=== PATIENT | female | born 1970 | race Caucasian/White ===

== ENCOUNTER 2020-02-12 10:10 | Inpatient (IN) | payer OTHER ==
[2020-02-12] MEDS ORDERED: Ketorolac 30 MG/ML SDV IVPUSH ONE (10:50)
[2020-02-12] MEDS ORDERED: Sodium Chloride 0.9% 1,000 ML IV ONE (10:50)
[2020-02-12] MEDS ORDERED: Piperacillin/Tazobactam/Dext 3.375 GM in Premix Bag 1 BAG IV ONE (10:50)
[2020-02-12] MEDS ORDERED: Sodium Chloride 0.9% 10 ML Syringe FLUSH PRN (10:50)
--- NOTE | 2020-02-12 11:06 | EDM.PDOC ---
ED HPI GENERAL MEDICAL PROBLEM - General Chief Complaint: Skin Complaint Stated Complaint: FEVER/CHILLS AND LOWER ABDOMINAL DISCOMFORT Time Seen by Provider: 02/12/20 10:35 Source of Information: Reports: Patient History Limitations: Reports: No Limitations - History of Present Illness INITIAL COMMENTS - FREE TEXT/NARRATIVE: 49 YO WF PRESENTS TO ER WITH COMPLAINTS OF 1 DAY FEVER/CHILLS AND LOWER ABDOMINAL DISCOMFORT. PT REPORTS SHE NOTICED EARLIER IN THE DAY A MILD HEADACHE AND FEELING FLUSHED. PT TOOK HER TEMP AT HOME AND NOTICED 102 TEMP. PT REPORTS TAKING SOME IBUPROFEN AT THAT TIME AND SYMPTOMS IMPROVED. PT REPORTS SHE BEGAN TO FEEL SOME LOWER ABDOMINAL DISCOMFORT WHICH SHE DESCRIBED A BURNING AND PULLING SENSATION. PT REPORTS SHE NOTICED SOME REDNESS TO HER LOWER ABDOMEN PROMPTING CONCERN AND ER EVALUATION. PT STATES HER PAIN FEELS MORE LIKE A BURN WITH MOSTLY SUPERFICIAL INVOLVEMENT. PT DENIES DYSURIA OR URINARY FREQUENCY. PT STATES SHE IS UNAWARE OF ANY RASH OR RECENT SKIN BREAKDOWN TO HER LOWER ABDOMEN. PT DENIES FEVER/CHILLS, NO NAUSEA/VOMITING, NO DIARRHEA/CONSTIPATION, NO COUGH/CONGESTION, NO SHORTNESS OF BREATH/CHEST PAIN OR SORE THROAT. 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 - Related Data Allergies Allergy/AdvReac Type Severity Reaction Status Date / Time macadamia nut oil Allergy Anaphylactic Verified 02/12/20 10:43 Shock No Known Drug Allergies Allergy Cannot Verified 04/09/16 17:47 Remember Home Meds: Home Meds Ibuprofen [Advil] 800 mg PO Q6H PRN 01/21/16 [History] Lisinopril 10 mg PO DAILY 01/21/16 [History] Citalopram [Citalopram HBr] 20 mg PO DAILY 02/12/20 [History] Ergocalciferol (Vitamin D2) [Vitamin D2] 50,000 unit PO WE 02/12/20 [History] Past Medical History Cardiovascular History: Reports: Hypertension, Other (See Below) Other Cardiovascular History: Stopped taking medications Gastrointestinal History: Reports: None, Cholelithiasis Genitourinary History: Reports: Renal Calculus 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 Denies: Bruising, Wound, Burn(s) Neurological: Reports: No Symptoms Psychiatric: Reports: No Symptoms Hematologic/Lymphatic: Reports: No Symptoms Immunologic: Reports: No Symptoms ED EXAM, SKIN/RASH Exam: See Below Exam Limited By: No Limitations General Appearance: Alert, WD/WN, No Apparent Distress Throat/Mouth: Normal Inspection, Normal Lips, Normal Teeth, Normal Gums, Normal Oropharynx, Normal Voice, No Airway Compromise Head: Atraumatic, Normocephalic Neck: Normal Inspection, Supple, Non-Tender, Full Range of Motion Respiratory/Chest: No Respiratory Distress, Lungs Clear, Normal Breath Sounds, No Accessory Muscle Use, Chest Non-Tender Cardiovascular: Normal Peripheral Pulses, Regular Rate, Rhythm, No Edema, No Gallop, No JVD, No Murmur, No Rub GI/Abdominal: Normal Bowel Sounds, Soft, No Organomegaly, No Distention, No Abnormal Bruit, No Mass, Tender (SUPERFICIAL TENDERNESS WITHOUT SIGNS/EVIDENCE OF ABCESS OR FLUID COLLECTION) Back Exam: Normal Inspection, Full Range of Motion, NT Extremities: Normal Inspection, Normal Range of Motion, Non-Tender, No Pedal Edema, Normal Capillary Refill Neurological: Alert, Oriented, CN II-XII Intact, Normal Cognition, Normal Gait, Normal Reflexes, No Motor/Sensory Deficits Psychiatric: Normal Affect, Normal Mood Skin: Erythema, Increased Warmth. No: Ecchymosis, Petechiae, Wound/Incision, Zoster-Like Rash Location, Skin: Abdomen Characteristics: Erythematous Associated features: Warmth, Tenderness. No: Swelling, Induration, Weeping Course - Orders/Labs/Meds Orders: Active Orders 24 hr Category Date Time Status Peripheral IV Care [RC] . DIRECTED Care 02/12/20 10:51 Active CULTURE BLOOD [] Stat Lab 02/12/20 10:51 Ordered CULTURE BLOOD [BC] Stat Lab 02/12/20 11:10 Received UA W/MICROSCOPIC [URIN] Stat Lab 02/12/20 10:50 Ordered Sodium Chloride 0.9% [Saline Flush] Med 02/12/20 10:50 Active 10 ml FLUSH Q8HR PRN Blood Culture x2 Reflex Set [OM.PC] Stat Oth 02/12/20 10:50 Ordered Peripheral IV Insertion Adult [OM.PC] Routine Oth 02/12/20 10:50 Ordered Medication Orders Sodium Chloride (Saline Flush) 10 ml FLUSH Q8HR PRN PRN Reason: keep vein open Labs: Laboratory Tests 02/12/20 02/12/20 Range/Units 11:10 11:10 WBC 9.27 (5.00-10.00) 10^3/uL RBC 5.12 (3.80-5.50) 10^6/uL Hgb 14.1 (12.0-16.0) g/dL Hct 43.3 (37.0-47.0) % MCV 84.6 (82.0-92.0) fL MCH 27.5 (27.0-31.0) pg MCHC 32.6 (32.0-36.0) g/dL RDW 12.9 (11.5-14.5) % Plt Count 184 (150-400) 10^3/uL MPV 11.4 H (7.4-10.4) fL Immature Gran % (Auto) 0.1 (0.0-5.0) % Neut % (Auto) 77.0 H (50.0-70.0) % Lymph % (Auto) 11.8 L (20.0-40.0) % Lane % (Auto) 8.2 H (2.0-8.0) % Eos % (Auto) 2.4 (1.0-3.0) % Baso % (Auto) 0.5 (0.0-1.0) % Neut # (Auto) 7.14 H (2.50-7.00) 10^3/uL Lymph # (Auto) 1.09 (1.00-4.00) 10^3/uL Lane # (Auto) 0.76 (0.10-0.80) 10^3/uL Eos # (Auto) 0.22 (0.10-0.30) 10^3/uL Baso # (Auto) 0.05 (0.00-0.10) 10^3/uL Immature Gran # (Auto) 0.01 (0.00-0.50) 10^3/uL Sodium 141 (136-145) mmol/L Potassium 3.7 (3.3-5.3) mmol/L Chloride 103 (98-115) mmol/L Carbon Dioxide 28.1 (21.0-32.0) mmol/L Anion Gap 13.6 (5-15) mmol/L BUN 8 (6-25) mg/dL Creatinine 0.72 (0.51-1.17) mg/dL Est Cr Clr Drug Dosing TNP Estimated GFR (MDRD) > 60 mL/min Glucose 105 H (75 - 99) mg/dL Calcium 8.5 L (8.7-10.3) mg/dL Total Bilirubin 0.7 (0.2-1.0) mg/dL AST 16 (15-37) U/L ALT 29 (12-78) U/L Alkaline Phosphatase 64 (46-116) IU/L Total Protein 7.0 (6.4-8.2) g/dL Albumin 3.39 (3.00-4.80) g/dL Lipase 61 L (73-393) U/L Meds: Medications Generic Name Dose Route Start Last Admin Trade Name Freq PRN Reason Stop Dose Admin Sodium Chloride 10 ml 02/12/20 10:50 Saline Flush FLUSH Q8HR PRN keep vein open Discontinued Medications Generic Name Dose Route Start Last Admin Trade Name Freq PRN Reason Stop Dose Admin Piperacillin/Tazobactam/ 50 mls @ 100 mls/hr 02/12/20 10:50 Dextrose 3.375 gm/ Premix IV 02/12/20 11:19 ONETIME ONE Sodium Chloride 1,000 mls @ 999 mls/hr 02/12/20 10:50 Normal Saline IV 02/12/20 11:50 .BOLUS ONE Ketorolac Tromethamine 30 mg 02/12/20 10:50 Toradol IVPUSH 02/12/20 10:51 ONETIME ONE Departure - Departure Time of Disposition: 12:13 Disposition: Admitted As Inpatient 68 Condition: Fair Clinical Impression: Abdominal wall cellulitis - Discharge Information Referrals: Jyoti Nunn PA-C [Primary Care Provider] - Forms: ED Department Discharge - My Orders Last 24 Hours: My Active Orders 02/12/20 10:50 UA W/MICROSCOPIC [URIN] Stat Sodium Chloride 0.9% [Saline Flush] 10 ml FLUSH Q8HR PRN Blood Culture x2 Reflex Set [OM.PC] Stat Peripheral IV Insertion Adult [OM.PC] Routine 02/12/20 10:51 Peripheral IV Care [RC] . DIRECTED CULTURE BLOOD [BC] Stat 02/12/20 11:10 CULTURE BLOOD [BC] Stat - Assessment/Plan Admission H&P: Please use this note as an admission H&P Last 24 Hours: My Active Orders 02/12/20 10:50 UA W/MICROSCOPIC [URIN] Stat Sodium Chloride 0.9% [Saline Flush] 10 ml FLUSH Q8HR PRN Blood Culture x2 Reflex Set [OM.PC] Stat Peripheral IV Insertion Adult [OM.PC] Routine 02/12/20 10:51 Peripheral IV Care [RC] . DIRECTED CULTURE BLOOD [BC] Stat 02/12/20 11:10 CULTURE BLOOD [BC] Stat Assessment:: 1. ABDOMINAL WALL CELLULITIS 2. FEVER Plan: 1. ADMIT INPATIENT- DR FRANCESCA HOLCOMB 2. VANCO/ZOSYN 3. REPEAT LABS IN AM 4. AWAIT BLOOD CULTURE RESULTS 5. SUPPORTIVE CARE
[2020-02-12 11:39] LABS: ANION GAP 13.6 mmol/L (5-15); CHLORIDE,CL 103 mmol/L (98-115); SODIUM,NA 141 mmol/L (136-145)
[2020-02-12] MEDS ORDERED: Piperacillin/Tazobactam/Dext 3.375 GM in Premix Bag 1 BAG IV SCH (12:30)
[2020-02-12] MEDS: Acetaminophen 500 MG Tab PO PRN (17:29)
[2020-02-12] MEDS: Sodium Chloride 0.9% 250 ML IV SCH (20:54)
[2020-02-12] MEDS: Piperacillin/Tazobactam/Dext 3.375 GM in Premix Bag 1 BAG IV SCH (20:55)
[2020-02-12] MEDS: Ibuprofen 200 MG Tab PO PRN (22:04)
[2020-02-13] MEDS: Piperacillin/Tazobactam/Dext 3.375 GM in Premix Bag 1 BAG IV SCH ×4 (03:07→20:53)
[2020-02-13] MEDS: Ibuprofen 200 MG Tab PO PRN ×3 (06:15→21:10)
[2020-02-13] MEDS: Acetaminophen 500 MG Tab PO PRN (07:41)
[2020-02-13 07:56] LABS: ANION GAP 9.9 mmol/L (5-15); CHLORIDE,CL 106 mmol/L (98-115); SODIUM,NA 142 mmol/L (136-145)
[2020-02-13] MEDS: Lisinopril 10 MG Tab PO SCH (08:52)
[2020-02-13] MEDS: Citalopram 20 MG Tab PO SCH (08:54)
[2020-02-13] MEDS: Sodium Chloride 0.9% 10 ML Syringe FLUSH PRN (14:53)
[2020-02-14] MEDS: Piperacillin/Tazobactam/Dext 3.375 GM in Premix Bag 1 BAG IV SCH ×4 (03:08→20:32)
[2020-02-14] MEDS: Ibuprofen 200 MG Tab PO PRN ×2 (03:09→19:13)
[2020-02-14] MEDS: Lisinopril 10 MG Tab PO SCH (08:28)
[2020-02-14] MEDS: Citalopram 20 MG Tab PO SCH (08:28)
--- NOTE | 2020-02-14 10:50 | PN ---
02/13/2020 PATIENT NAME: MADHURI LOGAN HISTORY OF PRESENT ILLNESS: This is a 49-year-old female who was admitted to the emergency room yesterday with abdominal wall cellulitis and fever. She was given a dose of vancomycin in the emergency room and treated with Zosyn. The patient states she feels a little better, however, it is still quite tender on the abdomen. She has been afebrile. She is receiving IV Zosyn and tolerating that well. LABORATORY DATA: Lab results from today shows a normal white blood cell count. She has a normal hemoglobin and hematocrit of 13 and 39.3. Chemistry panel was completely normal with the exception of a low calcium of 8.2. BUN and creatinine are normal at 8 and 0.67. UA in the ER was negative. Her lactate was normal at 0.6. PHYSICAL EXAMINATION: VITAL SIGNS: Temp is 98.7, pulse 63, respirations 18, blood pressure 120/70, O2 saturation is 97% on room air. SKIN: Warm and dry to touch. CARDIAC: Reveals S1, S2 to be normal. Rate and rhythm are regular. No murmur, click, or gallop is auscultated. LUNGS: Clear. ABDOMEN: Tender in the lower aspect. There is a cellulitis present and it is reducing in size. It is well marked with a permanent marker. Her abdomen is quite obese. There may be a portal of entry with two small sores on the left side of her abdomen. IMPRESSION: Abdominal wall cellulitis. She will continue Zosyn. She will stay in the hospital for at least one more day, possibly two. Dr. Delfina Tobin will see her tomorrow on acute care rounds. /[id number]/MODL
[2020-02-14] MEDS: Sodium Chloride 0.9% 10 ML Syringe FLUSH PRN ×2 (15:30→16:20)
[2020-02-14] MEDS: Sodium Chloride 0.9% 250 ML IV SCH (15:31)
--- NOTE | 2020-02-14 16:03 | PCM.PN ---
- General Info Date of Service: 02/14/20 Admission Dx/Problem (Free Text): Abdominal wall cellulitis. - Review of Systems Systems Review Comment:: Petra is seen today on inpatient rounds. She was admitted through the ER on 02/11 with abdominal wall cellulitis of only a day's duration with fevers and pain at the site. She was started on vancomycin and zosyn. Blood cultures have been negative to date. No obvious abscess. Labs have been normal. She still has tenderness this morning but it is improving. No fevers in over 24 hours. - Patient Data Vitals - Most Recent: Last Vital Signs Temp 98.1 F 02/14/20 15:00 Pulse 68 02/14/20 15:00 Resp 18 02/14/20 15:00 BP 107/55 L 02/14/20 15:00 Pulse Ox 98 02/14/20 15:00 Weight - Most Recent: 356 lb 14.4 oz I&O - Last 24 Hours: Intake & Output 02/14/20 02/14/20 02/14/20 06:59 14:59 22:59 Intake Total 280 1175 Balance 280 1175 John Results Last 24 Hours: Microbiology 02/12/20 12:35 Aerobic Blood Culture - Preliminary Blood - Arm, Left NO GROWTH AFTER 2 DAYS Anaerobic Blood Culture - Preliminary NO GROWTH AFTER 2 DAYS 02/12/20 11:10 Aerobic Blood Culture - Preliminary Blood - Arm, Right NO GROWTH AFTER 2 DAYS Anaerobic Blood Culture - Preliminary NO GROWTH AFTER 2 DAYS Med Orders - Current: Current Medications Acetaminophen (Tylenol Extra Strength) 1,000 mg PO Q6H PRN PRN Reason: Headache Last Admin: 02/13/20 07:41 Dose: 1,000 mg Documented by: Citalopram Hydrobromide (Celexa) 20 mg PO DAILY [facility] Last Admin: 02/14/20 08:28 Dose: 20 mg Documented by: Piperacillin/Tazobactam/ (Dextrose 3.375 gm/ Premix) 50 mls @ 100 mls/hr IV Q6H [facility] Last Admin: 02/14/20 15:31 Dose: 100 mls/hr Documented by: Sodium Chloride (Normal Saline) 250 mls @ 100 mls/hr IV ASDIRECTED [facility] Last Admin: 02/14/20 15:31 Dose: 100 mls/hr Documented by: Ibuprofen (Motrin) 800 mg PO Q6H PRN PRN Reason: Pain Last Admin: 02/14/20 03:09 Dose: 800 mg Documented by: Lisinopril (Prinivil) 10 mg PO DAILY [facility] Last Admin: 02/14/20 08:28 Dose: 10 mg Documented by: Non-Formulary Medication (Ergocalciferol (Vitamin D2) [Vitamin D2]) 50,000 unit PO WE [facility] Sodium Chloride (Saline Flush) 10 ml FLUSH Q8HR PRN PRN Reason: keep vein open Last Admin: 02/14/20 15:30 Dose: 10 ml Documented by: Discontinued Medications Piperacillin/Tazobactam/ (Dextrose 3.375 gm/ Premix) 50 mls @ 100 mls/hr IV ONETIME ONE Stop: 02/12/20 11:19 Last Admin: 02/12/20 17:08 Dose: Not Given Documented by: Sodium Chloride (Normal Saline) 1,000 mls @ 999 mls/hr IV .BOLUS ONE Stop: 02/12/20 11:50 Last Admin: 02/12/20 12:03 Dose: 999 mls/hr Documented by: Piperacillin/Tazobactam/ (Dextrose 3.375 gm/ Premix) 50 mls @ 100 mls/hr IV Q6H [facility] Last Admin: 02/12/20 15:22 Dose: 100 mls/hr Documented by: Vancomycin HCl 1 gm/ Sodium (Chloride) 250 mls @ 167 mls/hr IV ONETIME ONE Stop: 02/12/20 13:45 Last Admin: 02/12/20 12:40 Dose: 167 mls/hr Documented by: Ketorolac Tromethamine (Toradol) 30 mg IVPUSH ONETIME ONE Stop: 02/12/20 10:51 Last Admin: 02/12/20 12:04 Dose: 30 mg Documented by: Sodium Chloride (Saline Flush) 10 ml FLUSH Q8HR PRN PRN Reason: keep vein open - Exam General: Alert, Oriented, Cooperative, No Acute Distress Lungs: Clear to Auscultation, Normal Respiratory Effort Cardiovascular: Regular Rate, Regular Rhythm, No Murmurs GI/Abdominal Exam: Tender (Tender on the right abdomen where the cellulitis is located.) Skin: Other (Area of erythema of the abdomen is regressing from marked line although still erythematous and warm to the touch, more on the right than the left.) Sepsis Event Note - Evaluation Sepsis Screening Result: No Definite Risk - Focused Exam Vital Signs: Vital Signs Temp Pulse Resp BP BP Pulse Ox Pulse Ox 02/14/20 15:00 98.1 F 68 18 107/55 L 98 02/14/20 08:28 115/76 02/14/20 07:55 97 02/14/20 06:13 97.3 F 69 18 142/72 H 97 - Problem List Review Problem List Initiated/Reviewed/Updated: Yes - My Orders Last 24 Hours: My Active Orders 02/16/20 19:37 Ergocalciferol (Vitamin D2) [Vitamin D2] 50,000 unit PO WE - Assessment Assessment:: Abdominal wall cellulitis Depression HTN - Plan Plan:: Abdominal wall cellulitis - Continue vancomycin, pharm to dose - Continue zosyn - Blood cultures are negative to date Depression - Continue citalopram HTN - Continue lisinopril CODE STATUS: Full Code Anticipate discharge to home on oral antibiotics in 1-2 days.
[2020-02-15] MEDS: Piperacillin/Tazobactam/Dext 3.375 GM in Premix Bag 1 BAG IV SCH ×3 (02:56→14:34)
[2020-02-15 08:07] LABS: ANION GAP 10.4 mmol/L (5-15); CHLORIDE,CL 106 mmol/L (98-115); SODIUM,NA 142 mmol/L (136-145)
[2020-02-15] MEDS: Citalopram 20 MG Tab PO SCH (08:33)
[2020-02-15] MEDS: Lisinopril 10 MG Tab PO SCH (08:33)
[2020-02-15 14:54] VITALS: BP 143/75; PULSE 65
[2020-02-16] MEDS ORDERED: ERGOCALCIFEROL 50000 UNIT PO SCH (19:37)
--- NOTE | 2020-02-17 12:24 | DISCH ---
HOSPITAL COURSE: This is a 49-year-old female who was being discharged from the hospital. She was admitted through the ER on 02/12/2020 with abdominal wall cellulitis. She received a dose of vancomycin in the emergency room and was continued on Zosyn inpatient. Blood cultures were negative. No obvious abscess. Lab work has been normal. Her abdomen is still somewhat tender, however, it has improved quite a bit. She has not had a fever in 48 hours. She is ready to go home and is confident that she can return to her activities of daily living. Lactate has been negative as well. She was tested for COVID and was negative for the same. PHYSICAL EXAMINATION: VITAL SIGNS: She is afebrile, pulse 63, respirations 18, blood pressure 120/70, O2 saturation 97% on room air. SKIN: Warm and dry to touch. CARDIAC: Reveals S1, S2 to be normal. Rate and rhythm are regular. No murmur, click, or gallop is auscultated. LUNGS: Clear. GI: Abdominal wall, right, mid to lower abdomen is somewhat tender in some areas where it was tender in the entire marked area before. This has improved. IMPRESSION: 1. Abdominal wall cellulitis. She has done well with IV antibiotics and is improving. She has been afebrile for 48 hours. She will be discharged to home. She will follow up with Dr. Mathis or myself on Tuesday, February 18, 2020. She will be discharged with cephalexin 500 mg q.i.d. for 14 days. Should she have any problems after discharge, she will notify the hospital or the clinic. 2. She does have a history of depression and is taking citalopram. This will be continued. 3. Hypertension, stable, on lisinopril. She will continue that at home as well. /[id number]/MODL
== END 2020-02-15 16:00 | disposition home or self-care (01) | DRG 603 ==
LOC: KA.ED 10:10 → KA.MS 12:13
PROVIDERS: ADMIT Physician Assistant Medical; ATTEND Internal Medicine
DX: L03.311 Cellulitis of abdominal wall (principal); F32.9 Major depressive disorder, single episode, unspecified; I10 Essential (primary) hypertension; Z20.828 Contact with and (suspected) exposure to other viral communicable diseases; Z87.442 Personal history of urinary calculi; Z91.018 Allergy to other foods; Z79.899 Other long term (current) drug therapy
CPT/HCPCS: 36415; 80048; 80053; 81001; 83605; 83690; 85025; 87040; 87077; 96374; 99223; 99284-25; A9270-GY; J1885; J2543; J3370; J7030; J7050; U0002

== ENCOUNTER 2021-09-18 21:10 | Emergency (ER) | payer OTHER ==
[2021-09-18] MEDS ORDERED: Sodium Chloride 0.9% 10 ML Syringe FLUSH PRN (21:25)
[2021-09-18] MEDS: Sodium Chloride 0.9% 1,000 ML IV ONE (21:34)
[2021-09-18] MEDS: Ketorolac 30 MG/ML SDV IVPUSH ONE (21:38)
[2021-09-18] MEDS: Sodium Chloride 0.9% 1,000 ML ONE (21:43)
[2021-09-18 21:49] LABS: ANION GAP 14.4 mmol/L (5-15); CHLORIDE,CL 101 mmol/L (98-107); SODIUM,NA 138 mmol/L (136-145)
[2021-09-18] MEDS: Iopamidol 755 Mg/ML 100 ML Bottle IV ONE (22:15)
[2021-09-18] MEDS: Sodium Chloride 0.9% 50 ML IV SCH (22:26)
[2021-09-18 22:51] VITALS: PULSE 70
[2021-09-18 23:20] VITALS: BP 147/84
== END 2021-09-18 23:16 | disposition home or self-care (01) ==
LOC: KA.ED 21:10
DX: N83.201 Unspecified ovarian cyst, right side (principal); I10 Essential (primary) hypertension; E66.9 Obesity, unspecified; Z68.43 Body mass index [BMI] 50.0-59.9, adult; Z88.8 Allergy status to other drugs, medicaments and biological substances; Z79.82 Long term (current) use of aspirin
CPT/HCPCS: 36415; 74177; 80053; 81003; 83690; 84703; 85025; 96374; 99284; 99284-25; J1885; J7030; Q9967

== ENCOUNTER 2023-06-22 13:16 | Emergency (ER) | payer OTHER ==
[2023-06-22] MEDS ORDERED: Ketorolac 30 MG/ML SDV IVPUSH ONE (13:23)
[2023-06-22] MEDS ORDERED: Ondansetron 4 MG/2 ML SDV IVPUSH ONE (13:24)
[2023-06-22] MEDS ORDERED: Sodium Chloride 0.9% 1,000 ML IV ONE (13:25)
[2023-06-22 13:29] LABS: BASOPHILS ABSOLUTE AUTO 0.04 10^3/uL (0.00-0.10); BASOPHILS PERCENT AUTO 0.6 % (0.0-1.0); EOSINOPHILS ABSOLUTE AUTO 0.31 10^3/uL (0.10-0.30); EOSINOPHILS PERCENT AUTO 4.5 % (1.0-3.0); HEMATOCRIT 42.1 % (37.0-47.0); IMMATURE GRAN ABSOLUTE AUTO 0.02 10^3/uL (0.00-0.50); IMMATURE GRAN PERCENT AUTO 0.3 % (0.0-5.0); LYMPHOCYTES ABSOLUTE AUTO 1.41 10^3/uL (1.00-4.00); LYMPHOCYTES PERCENT AUTO 20.7 % (20.0-40.0); MEAN CORPUSCULAR HEMOGLOBIN 28.2 pg (27.0-31.0); MEAN CORPUSCULAR HGB CONC 33.3 g/dL (32.0-36.0); MEAN CORPUSCULAR VOLUME 84.7 fL (82.0-92.0); MEAN PLATELET VOLUME 11.4 fL (7.4-10.4); MONOCYTES ABSOLUTE AUTO 0.56 10^3/uL (0.10-0.80); MONOCYTES PERCENT AUTO 8.2 % (2.0-8.0); NEUTROPHILS ABSOLUTE AUTO 4.48 10^3/uL (2.50-7.00); NEUTROPHILS PERCENT AUTO 65.7 % (50.0-70.0); PLATELET COUNT,PLT 212 10^3/uL (150-400); RED BLOOD CELL COUNT 4.97 10^6/uL (3.80-5.50); RED CELL DISTRIBUTION WIDTH 12.5 % (11.5-14.5); WHITE BLOOD CELL COUNT,WBC 6.82 10^3/uL (5.00-10.00)
[2023-06-22 13:44] LABS: ALANINE AMINOTRANSFERASE,ALT 33 U/L (14-63); ALKALINE PHOSPHATASE 55 U/L (46-116); ANION GAP 14.6 mmol/L (5-15); ASPARTATE AMNIOTRANSFERASE,AST 25 U/L (15-37); BILIRUBIN TOTAL 0.6 mg/dL (0.2-1.0); BLOOD UREA NITROGEN,BUN 17 mg/dL (7-18); CALCIUM 8.7 mg/dL (8.7-10.3); CARBON DIOXIDE,CO2 25.2 mmol/L (21.0-32.0); CHLORIDE,CL 101 mmol/L (98-107); CREATININE 0.71 mg/dL (0.51-1.17); ESTIMATED GFR 104 mL/min (>=60); GLUCOSE RANDOM 111 mg/dL (70-140); POTASSIUM,K 3.8 mmol/L (3.5-5.1); PROTEIN TOTAL,TP 7.1 g/dL (6.4-8.2); SODIUM,NA 137 mmol/L (136-145)
[2023-06-22 14:08] LABS: APPEARANCE,URINE CLOUDY (CLEAR); BILIRUBIN,URINE SMALL (NEGATIVE); COLOR,URINE YELLOW (YELLOW); GLUCOSE,URINE NEGATIVE (NEGATIVE); KETONES,URINE NEGATIVE (NEGATIVE); LEUKOCYTE ESTERASE,URINE NEGATIVE (NEGATIVE); NITRITE,URINE NEGATIVE (NEGATIVE); OCCULT BLOOD,URINE LARGE (NEGATIVE); PH,URINE 5.5 (5.0-9.0); PROTEIN,URINE 100 mg/dL (NEGATIVE); UROBILINOGEN,URINE 0.2 E.U./dL (0.2-1.0)
[2023-06-22 14:09] LABS: BACTERIA,URINE FEW /HPF (NONE TO FEW); EPITHELIAL CELLS,URINE MODERATE /LPF; MUCUS,URINE FEW /LPF (NEGATIVE); RBC,URINE >100 /HPF (0-5); WBC,URINE 0-5 /HPF (0-5)
[2023-06-22] MEDS ORDERED: Tamsulosin 0.4 MG Cap.ER PO ONE ×2 (14:20→14:46)
[2023-06-22] MEDS ORDERED: Ondansetron 4 MG Tab.DIS PO ONE (15:10)
[2023-06-22] MEDS ORDERED: Acetaminophen/HYDROcodone 325-10 MG Tab PO ONE (15:11)
[2023-06-22 16:07] VITALS: BP 154/80; PULSE 62
== END 2023-06-22 15:34 | disposition home or self-care (01) ==
LOC: KA.ED 13:16
DX: N13.2 Hydronephrosis with renal and ureteral calculous obstruction (principal); I10 Essential (primary) hypertension; Z91.018 Allergy to other foods; E66.9 Obesity, unspecified; Z68.43 Body mass index [BMI] 50.0-59.9, adult; Z79.899 Other long term (current) drug therapy
CPT/HCPCS: 74176; 80053; 81001; 85025; 96374; 96375; 99284; 99284-25; A9270-GY; J1885; J2405; J7030

== ENCOUNTER 2023-12-21 19:59 | Emergency (ER) | payer OTHER ==
[2023-12-21] MEDS: Ondansetron 4 MG/2 ML SDV ONE (20:28)
[2023-12-21] MEDS: LORazepam 2 MG/ML SDV IVPUSH ONE (20:29)
[2023-12-21] MEDS: Alum Hydrox/Mag Hydrox/Simeth 30 ML, Lidocaine 2% 15 ML PO ONE (20:33)
[2023-12-21] MEDS: LORazepam 2 MG/ML SDV ONE (20:33)
[2023-12-21] MEDS: Ondansetron 4 MG/2 ML SDV IVPUSH ONE (20:33)
[2023-12-21] MEDS: Glucagon,Human Recombinant 1 MG Vial IVPUSH ONE (20:43)
[2023-12-21 20:50] VITALS: BP 151/96; PULSE 90
== END 2023-12-21 21:25 | disposition home or self-care (01) ==
LOC: KA.ED 19:59
DX: K22.89 Other specified disease of esophagus (principal); I10 Essential (primary) hypertension; E66.9 Obesity, unspecified; Z90.49 Acquired absence of other specified parts of digestive tract; Z79.899 Other long term (current) drug therapy; Z91.018 Allergy to other foods; Z68.43 Body mass index [BMI] 50.0-59.9, adult
CPT/HCPCS: 96374; 96375; 99283-25; 99284; A9270-GY; J1611; J2060; J2405

== ENCOUNTER 2024-01-20 08:08 | Day surgery (SDC) | payer OTHER ==
[2024-01-20] MEDS ORDERED: Propofol 200 MG/20 ML SDV IV ONE (08:09)
[2024-01-20] MEDS: Sodium Chloride 0.9% 10 ML Syringe FLUSH PRN (08:30)
[2024-01-20] MEDS: Lactated Ringers 1,000 ML IV SCH (08:37)
[2024-01-20] MEDS ORDERED: Glycopyrrolate 0.2 MG/ML SDV ONE (08:52)
[2024-01-20] MEDS ORDERED: Midazolam 1 MG/ML 2 ML SDV ONE (08:52)
[2024-01-20] MEDS ORDERED: Propofol 200 MG/20 ML SDV ONE ×3 (08:52→09:42)
[2024-01-20] MEDS ORDERED: Lidocaine 2% 100 MG/5 ML Syringe ONE (08:53)
[2024-01-20] MEDS ORDERED: Lactated Ringers 1,000 ML ONE (09:32)
[2024-01-20 12:21] VITALS: BP 130/76; PULSE 61
== END 2024-01-20 11:46 | disposition home or self-care (01) ==
LOC: KA.SDS 08:08
PROVIDERS: ATTEND Surgery
DX: Z12.11 Encounter for screening for malignant neoplasm of colon (principal); R13.10 Dysphagia, unspecified; K29.50 Unspecified chronic gastritis without bleeding; K57.30 Diverticulosis of large intestine without perforation or abscess without bleeding; N20.0 Calculus of kidney; Z80.0 Family history of malignant neoplasm of digestive organs
CPT/HCPCS: 00813; 81025; J2250; J2704; J3490; J7120

== ENCOUNTER 2024-09-02 12:23 | Emergency (ER) | payer BC, OTHER ==
[2024-09-02] MEDS ORDERED: Sodium Chloride 0.9% 10 ML Syringe FLUSH PRN (12:34)
[2024-09-02 12:38] VITALS: BP 139/80; PULSE 70
[2024-09-02] MEDS: Alum Hydrox/Mag Hydrox/Simeth 30 ML, Lidocaine 2% 15 ML PO ONE (12:43)
[2024-09-02 12:47] LABS: BASOPHILS ABSOLUTE AUTO 0.03 10^3/uL (0.00-0.10); BASOPHILS PERCENT AUTO 0.4 % (0.0-1.0); EOSINOPHILS ABSOLUTE AUTO 0.26 10^3/uL (0.10-0.30); EOSINOPHILS PERCENT AUTO 3.7 % (1.0-3.0); HEMATOCRIT 43.8 % (37.0-47.0); IMMATURE GRAN ABSOLUTE AUTO 0.01 10^3/uL (0.00-0.04); IMMATURE GRAN PERCENT AUTO 0.1 % (0.0-0.4); LYMPHOCYTES ABSOLUTE AUTO 1.39 10^3/uL (1.00-4.00); MEAN CORPUSCULAR HEMOGLOBIN 27.9 pg (27.0-31.0); MEAN CORPUSCULAR HGB CONC 34.2 g/dL (32.0-36.0); MEAN CORPUSCULAR VOLUME 81.4 fL (82.0-92.0); MEAN PLATELET VOLUME 11.6 fL (7.4-10.4); MONOCYTES ABSOLUTE AUTO 0.69 10^3/uL (0.10-0.80); MONOCYTES PERCENT AUTO 9.9 % (2.0-8.0); NEUTROPHILS ABSOLUTE AUTO 4.57 10^3/uL (2.50-7.00); NEUTROPHILS PERCENT AUTO 65.9 % (50.0-70.0); PLATELET COUNT,PLT 212 10^3/uL (150-400); RED BLOOD CELL COUNT 5.38 10^6/uL (3.80-5.50); RED CELL DISTRIBUTION WIDTH 12.5 % (11.5-14.5); WHITE BLOOD CELL COUNT,WBC 6.95 10^3/uL (5.00-10.00)
[2024-09-02] MEDS: Pantoprazole 40 MG Vial IVPUSH ONE (12:54)
[2024-09-02 13:07] LABS: B-TYPE NATRIURETIC PEPTIDE,BNP 8 pg/mL (0-100)
[2024-09-02 13:08] LABS: ALANINE AMINOTRANSFERASE,ALT 42 U/L (14-63); ALBUMIN 3.77 g/dL (3.40-5.00); ALKALINE PHOSPHATASE 67 U/L (46-116); ASPARTATE AMNIOTRANSFERASE,AST 23 U/L (15-37); BILIRUBIN TOTAL 0.6 mg/dL (0.2-1.0); BLOOD UREA NITROGEN,BUN 14 mg/dL (7-18); C-REACTIVE PROTEIN < 0.50 mg/dL (0.00-0.50); CALCIUM 9.8 mg/dL (8.7-10.3); CARBON DIOXIDE,CO2 27.8 mmol/L (21.0-32.0); CHLORIDE,CL 99 mmol/L (98-107); CREATININE 0.67 mg/dL (0.51-1.17); ESTIMATED GFR 106 mL/min (>=60); GLUCOSE RANDOM 101 mg/dL (70-140); LIPASE 24 U/L (16-77); POTASSIUM,K 3.8 mmol/L (3.5-5.1); PROTEIN TOTAL,TP 7.3 g/dL (6.4-8.2); SODIUM,NA 136 mmol/L (136-145)
[2024-09-02] MEDS: Sodium Chloride 0.9% 1,000 ML IV ONE (13:31)
[2024-09-02] MEDS: Famotidine 20 MG/2 ML SDV IVPUSH ONE (13:31)
[2024-09-02] MEDS: Iopamidol 755 Mg/ML 100 ML Bottle IV ONE (14:29)
[2024-09-02] MEDS: Sodium Chloride 0.9% 100 ML IV SCH (14:29)
== END 2024-09-02 16:00 | disposition home or self-care (01) ==
LOC: KA.ED 12:23
DX: K29.51 Unspecified chronic gastritis with bleeding (principal); K22.89 Other specified disease of esophagus; F41.9 Anxiety disorder, unspecified; F32.A Depression, unspecified; R79.89 Other specified abnormal findings of blood chemistry; I10 Essential (primary) hypertension; Z91.09 Other allergy status, other than to drugs and biological substances; Z88.8 Allergy status to other drugs, medicaments and biological substances; Z79.899 Other long term (current) drug therapy; Z90.49 Acquired absence of other specified parts of digestive tract; Z87.19 Personal history of other diseases of the digestive system
CPT/HCPCS: 36415; 71045; 71275; 80053; 83690; 83880; 84484; 85025; 85379; 86140; 93005; 93010; 96374; 96375; 99284; 99285-25; A9270-GY; J2470; J7030; Q9967

== ENCOUNTER 2025-02-22 18:47 | Emergency (ER) | payer BC, OTHER ==
[2025-02-22] MEDS: Bacitracin/Neomycin/Polymyxin B Oint 0.9 GM U/D Packet TOP ONE (19:16)
[2025-02-22 22:18] VITALS: BP 169/92; PULSE 75
== END 2025-02-22 19:27 | disposition home or self-care (01) ==
LOC: KA.ED 18:47
DX: L03.311 Cellulitis of abdominal wall (principal); I10 Essential (primary) hypertension; E66.9 Obesity, unspecified; Z79.899 Other long term (current) drug therapy; Z79.1 Long term (current) use of non-steroidal anti-inflammatories (NSAID); Z88.8 Allergy status to other drugs, medicaments and biological substances; Z91.09 Other allergy status, other than to drugs and biological substances; Z90.49 Acquired absence of other specified parts of digestive tract
CPT/HCPCS: 87070; 87205; 99284; A9270

== ENCOUNTER 2025-05-11 17:43 | Emergency (ER) | payer BC, OTHER ==
[2025-05-11] MEDS ORDERED: Sodium Chloride 0.9% 10 ML Syringe FLUSH PRN (17:53)
[2025-05-11 18:10] LABS: BASOPHILS ABSOLUTE AUTO 0.07 10^3/uL (0.00-0.10); BASOPHILS PERCENT AUTO 1.1 % (0.0-1.0); EOSINOPHILS ABSOLUTE AUTO 0.38 10^3/uL (0.10-0.30); EOSINOPHILS PERCENT AUTO 5.8 % (1.0-3.0); IMMATURE GRAN ABSOLUTE AUTO 0.01 10^3/uL (0.00-0.04); IMMATURE GRAN PERCENT AUTO 0.2 % (0.0-0.4); LYMPHOCYTES ABSOLUTE AUTO 1.84 10^3/uL (1.00-4.00); LYMPHOCYTES PERCENT AUTO 28.0 % (20.0-40.0); MEAN PLATELET VOLUME 11.7 fL (7.4-10.4); MONOCYTES ABSOLUTE AUTO 0.59 10^3/uL (0.10-0.80); MONOCYTES PERCENT AUTO 9.0 % (2.0-8.0); NEUTROPHILS ABSOLUTE AUTO 3.69 10^3/uL (2.50-7.00); NEUTROPHILS PERCENT AUTO 55.9 % (50.0-70.0); PLATELET COUNT,PLT 194 10^3/uL (150-400); RED BLOOD CELL COUNT 5.37 10^6/uL (3.80-5.50); RED CELL DISTRIBUTION WIDTH 12.6 % (11.5-14.5); WHITE BLOOD CELL COUNT,WBC 6.58 10^3/uL (5.00-10.00)
[2025-05-11 18:19] VITALS: BP 155/93; PULSE 78
[2025-05-11 18:28] LABS: ALANINE AMINOTRANSFERASE,ALT 59 U/L (14-63); ASPARTATE AMNIOTRANSFERASE,AST 15 U/L (15-37); BILIRUBIN TOTAL 0.5 mg/dL (0.2-1.0); BLOOD UREA NITROGEN,BUN 22 mg/dL (7-18); CARBON DIOXIDE,CO2 24.9 mmol/L (21.0-32.0); CHLORIDE,CL 99 mmol/L (98-107); CREATININE 0.71 mg/dL (0.51-1.17); EST CRCL DRUG DOSING (CG) 83.40 mL/min; GLUCOSE RANDOM 136 mg/dL (70-140); POTASSIUM,K 3.6 mmol/L (3.5-5.1); PROTEIN TOTAL,TP 7.7 g/dL (6.4-8.2); SODIUM,NA 136 mmol/L (136-145)
[2025-05-11] MEDS: Lactated Ringers 1,000 ML IV ONE (18:28)
[2025-05-11 18:33] LABS: ESTIMATED GFR 102 mL/min (>=60)
[2025-05-11 18:34] LABS: APPEARANCE,URINE CLEAR (CLEAR); GLUCOSE,URINE NEGATIVE (NEGATIVE); OCCULT BLOOD,URINE NEGATIVE (NEGATIVE)
[2025-05-11 18:38] LABS: INR 0.9 (0.9-1.1); PTT,PARTIAL THROMBOPLSTIN TIME 26.0 SEC (21.6-32.4)
[2025-05-11] MEDS: niCARdipine/Normal Saline 20 MG/200 ML BAG IV SCH (19:34)
== END 2025-05-11 21:30 ==
LOC: KA.ED 17:43
DX: I60.9 Nontraumatic subarachnoid hemorrhage, unspecified (principal); I10 Essential (primary) hypertension; Z88.8 Allergy status to other drugs, medicaments and biological substances; Z79.899 Other long term (current) drug therapy; Z90.49 Acquired absence of other specified parts of digestive tract
CPT/HCPCS: 36415; 70450; 71045; 80053; 81003; 84484; 85025; 85610; 85730; 93010; 96361; 96365; 96366; 99284; 99285-25; J2404; J7120